=== PATIENT | male | born 1955 | race Caucasian/White ===

== ENCOUNTER → 2020-02-26 08:29 | Outpatient (BNVA) | payer MEDICARE, SELFPAY | PROVIDERS: Family Provider Nurse Practitioner Family; PCP Family Medicine; Visit Provider Urology | DX: N52.9 Male erectile dysfunction, unspecified (principal); N52.1 Erectile dysfunction due to diseases classified elsewhere | CPT/HCPCS: 81001 ==

== ENCOUNTER → 2020-08-27 10:08 | Outpatient (BNVA) | payer MEDICARE, SELFPAY | PROVIDERS: Family Provider Nurse Practitioner Family; PCP Family Medicine; Visit Provider Urology | DX: N52.1 Erectile dysfunction due to diseases classified elsewhere (principal) | CPT/HCPCS: 81001 ==

== ENCOUNTER → 2022-01-21 11:06 | Outpatient (BNVA) | payer MEDICARE, SELFPAY | PROVIDERS: Family Provider Nurse Practitioner Family; PCP Family Medicine; Visit Provider Surgery | DX: Z20.822 Contact with and (suspected) exposure to COVID-19 (principal) | CPT/HCPCS: 87635 ==

== ENCOUNTER 2022-01-26 06:43 | Day surgery (SDC) | payer MEDICARE, SELFPAY ==
[2022-01-24 12:06] VITALS: BMI 37.5
[2022-01-26 07:27] VITALS: PULSE 73; RESP 18; TEMP 36.3; O2SAT 96
--- NOTE | 2022-01-26 07:30 | ANES.PREANE2 ---
Pre-Anesthetic Assessment Height/Weight: Height 1.7 m Weight 108.862 kg Preop Diagnosis: diagnostic Operation Date: 01/26/22 08:15 Proposed Procedures p EGD/31806/18546/r19.7/k21.9(Not Applicable) - Justin Aguirre MD s Colonoscopy(Not Applicable) - Justin Aguirre MD Familial anesthetic complications: None Was Beta Merary taken within 24 hours: Yes Was Clonidine taken within 24 hours: N/A Social No alcohol and No tobacco Airway Submandibular: within normal limits Cervical ROM: within normal limits Mallampati: Class II Dentition: loose CV/HEM Hypertension GI Gastroesophageal Reflux Disease Metabolic Thyroid Disease Anesthetic Plan ASA status: 2 Anesthesia: MAC Medications/Allergies Home Medications Medication Instructions Recorded Confirmed Last Taken Type exenatide microspheres 2 mg/0.65 2 mg SUBCUT Q7D 02/26/20 01/24/22 01/21/22 History mL subcutaneous pen injector ([employer]) levothyroxine 50 mcg capsule 50 mcg PO DAILY 02/26/20 01/24/22 01/25/22 History lisinopril 20 mg tablet 20 mg PO DAILY 02/26/20 01/24/22 01/25/22 History metoprolol succinate 50 mg 50 mg PO DAILY 02/26/20 01/26/22 01/26/22 05:00 History tablet,extended release 24 hr minocycline 100 mg capsule 100 mg PO .prn cap 02/26/20 01/24/22 Unknown History Allergies Allergy/AdvReac Type Severity Reaction Status Date / Time immune globulin,alpha (IgA) Allergy ADR-Abdominal Verified 12/28/21 09:55 Pain [facility] Anesthesia Medical History Allergy to alpha-gal Diabetes mellitus Erectile dysfunction GERD (gastroesophageal reflux disease) Surgical History H/O excision of dermoid cyst hip and shoulder Hx of appendectomy S/P tendon repair Hand Status post colonoscopy Family History Father , 42 CAD (coronary artery disease) Mother , 89 Chronic kidney disease (CKD) Social History Smoking and tobacco status: never smoked Alcohol intake: current Alcohol intake frequency: holidays/special occasions only Marital status: Current occupational status: retired History of recent travel: No Data Anesthesia Cardiac Studies: No Data to Display
[2022-01-26] MEDS: sodium chloride 0.9% 1,000 ML 30 ML IV (07:37)
--- NOTE | 2022-01-26 08:06 | P.HP_ITS ---
Same Day Surgery H&P Indication for Procedure/HPI DATE OF PROCEDURE: January 26, 2022 CHIEF COMPLAINT/INDICATIONFOR SURGICAL PROCEDURE: EGD/colonoscopy PREOP DIAGNOSIS: diagnostic PLANNED PROCEDURE: Operation Date: 01/26/22 08:15 Proposed Procedures p EGD/[id number]/[id number]/r19.7/k21.9(Not Applicable) - Justin Aguirre MD s Colonoscopy(Not Applicable) - Justin Aguirre MD Medications/Allergies* Home Medications Medication Instructions Recorded Confirmed Type exenatide microspheres 2 mg/0.65 2 mg SUBCUT Q7D 02/26/20 01/24/22 History mL subcutaneous pen injector ([facility]) levothyroxine 50 mcg capsule 50 mcg PO DAILY 02/26/20 01/24/22 History lisinopril 20 mg tablet 20 mg PO DAILY 02/26/20 01/24/22 History metoprolol succinate 50 mg 50 mg PO DAILY 02/26/20 01/26/22 History tablet,extended release 24 hr minocycline 100 mg capsule 100 mg PO .prn cap 02/26/20 01/24/22 History Allergies/Adverse Reactions Allergy/AdvReac Type Severity Reaction Status Date / Time immune globulin,alpha (IgA) Allergy ADR-Abdominal Verified 12/28/21 09:55 Pain Current Medications: Generic Name Dose Route Start Last Admin Trade Name Freq PRN Reason Stop Dose Admin Sodium Chloride 1,000 mls @ 30 mls/hr 01/26/22 07:15 01/26/22 07:37 Sodium Chloride 0.9% IV 01/27/22 07:14 30 mls/hr .Q24H HERBERTH Administration Pertinent History/Comorbid Conditions* Medical History (Updated 12/28/21 @ 10:33 by Justin Aguirre MD) Allergy to alpha-gal Diabetes mellitus Erectile dysfunction GERD (gastroesophageal reflux disease) Surgical History (Updated 12/28/21 @ 10:10 by Justin Aguirre MD) H/O excision of dermoid cyst hip and shoulder Hx of appendectomy S/P tendon repair Hand Status post colonoscopy Family History (Updated 02/26/20 @ 08:41 by Lori Duron LPN) Father, 42 Mother, 89 CAD (coronary artery disease) Father Chronic kidney disease (CKD) Mother Social History Smoking and tobacco status: never smoked Alcohol intake: current Alcohol intake frequency: holidays/special occasions only Marital status: Current occupational status: retired History of recent travel: No Pertinent Exam Findings alert, oriented x 3 and regular rate & rhythm Recommendations Surgery/Procedure today Coding Level of Care Code Acute Specification Manager for Lesly Negrete
[2022-01-26 08:53] VITALS: BP 125/82; PULSE 78; RESP 16; TEMP 36.1; O2SAT 94
[2022-01-26 09:03] VITALS: BP 113/78; PULSE 72; RESP 18; O2SAT 94
== END 2022-01-26 09:28 | disposition home or self-care (01) ==
PROVIDERS: PCP Family Medicine; Visit Provider Surgery
PROC: 0DJ08ZZ Inspection of Upper Intestinal Tract, Via Natural or Artificial Opening Endoscopic (ICD-10-PCS; CPT 43235; principal; 2022-01-26 08:15)
PROC: 0DJD8ZZ Inspection of Lower Intestinal Tract, Via Natural or Artificial Opening Endoscopic (ICD-10-PCS; CPT 45378; 2022-01-26 08:15)
DX: R19.7 Diarrhea, unspecified (principal); K21.9 Gastro-esophageal reflux disease without esophagitis; D12.5 Benign neoplasm of sigmoid colon; K64.8 Other hemorrhoids; Q45.8 Other specified congenital malformations of digestive system; I10 Essential (primary) hypertension; E11.9 Type 2 diabetes mellitus without complications; Z82.49 Family history of ischemic heart disease and other diseases of the circulatory system
CPT/HCPCS: 43239; 45380; 82274; 83630; 87493; 87506; 88305; J2704; J7030